=== PATIENT | male | born 1950 | race Caucasian/White ===

== ENCOUNTER 2019-09-29 11:09 | Emergency (ER) | payer MEDICARE, SELFPAY ==
[2019-09-29 11:12] VITALS: BP 215/98; PULSE 74; RESP 14; TEMP 36.8; O2SAT 98; BMI 23.8
--- NOTE | 2019-09-29 11:21 | DI.CT.S_ITS ---
PROCEDURE: CT HEAD/BRAIN WO CON INDICATIONS: fell and hit head on the rock, passed out TECHNIQUE: Noncontrast 4.5 mm thick angled axial sections acquired from the foramen magnum to the vertex, with coronal and sagittal reformats. For radiation dose reduction, the following was used: automated exposure control, adjustment of mA and/or kV according to patient size. COMPARISON: None. FINDINGS: Image quality: The CSF spaces: Basal cisterns are patent. No extra-axial fluid collections. Ventricles are normal in size and shape. Incidental note is made of an arachnoid cyst within the posterior fossa. Brain: No midline shift. No intracranial masses or hemorrhage. Nicholas-white matter interface is normal. Skull and face: Calvarium and visualized facial bones are intact, without suspicious lesions. Soft tissue swelling of the scalp overlying the left parietal region is identified without an underlying fracture. Sinuses: Visualized sinuses and mastoids are clear. IMPRESSION: Negative head CT. No acute intracranial hemorrhage. Dictated by: Ramon Hooks M.D. on 09/29/2019 at 10:45 Approved by: Ramon Hooks M.D. on 09/29/2019 at 10:46
--- NOTE | 2019-09-29 11:24 | ED.HEATRA ---
HPI - Head Injury <MATT Jolley - Last Filed: 09/29/19 13:51> General Chief complaint: Head Injury Stated complaint: Fell while walking, lost consciousness Time Seen by Provider: 09/29/19 11:11 Source: patient Mode of arrival: Ambulatory Limitations: no limitations History of Present Illness HPI Narrative: This is a 69-year-old male, nonsmoker, who presents to ED with chief complain of lower mid cervical tenderness and head injury after [facility] He thinks had hit his head on a nearby rock and possibly had a loss of consciousness. Patient denies tingling/numbness/weakness on upper extremities. Patient reports is stable on his legs and drove himself here. Patient denies taking anticoagulants or antiplatelets. MD Complaint: fall Related Data Previous Rx's Medication Instructions Recorded tadalafil [Cialis] 10 mg PO 1/2 HR PRIOR #10 tab 04/17/16 Allergies Allergy/AdvReac Type Severity Reaction Status Date / Time No Known Drug Allergies Allergy Verified 09/29/19 11:15 Review of Systems <MATT Jolley - Last Filed: 09/29/19 13:51> Review of Systems Narrative: General: Denies fever, chills, fatigue, malaise, sweats. HEENT: See HPI Respiratory: Denies dyspnea, cough, wheezing, hemoptysis, sputum. Cardiovascular: Denies chest pain, palpitations, orthopnea, edema. Gastrointestinal: Denies nausea, vomiting, abdominal pain, diarrhea, constipation, melena. : Denies dysuria, frequency, incontinence, hematuria, urinary retention. Musculoskeletal: Denies weakness, joint pain or bony pain. Skin: Denies rash, skin lesions, or other. Neurologic: Denies weakness, headache, numbness, change in speech, confusion, seizures, incoordination. Psychiatric: No concerning psychosocial issues. 12-point review of systems is negative except for those stated above. Patient History <MATT Jolley - Last Filed: 09/29/19 13:51> Medical History (Updated 09/29/19 @ 12:35 by MATT Jolley) No significant past medical history (Acute) Surgical History (Updated 09/29/19 @ 11:31 by MATT Jolley) No pertinent past surgical history (Acute) Family History (Updated 03/25/16 @ 00:00 by Conversion Provider) Father Alcoholic Manic depression Mother Essential hypertension Hyperlipidemia Chronic obstructive pulmonary disease, unspecified COPD type Sister Depression Social History Smoking Status: Never smoker Smoking Status: Never smoker alcohol intake frequency: holidays/special occasions only Substance Use Type: does not use Exam <MATT Jolley - Last Filed: 09/29/19 13:51> Narrative Exam Narrative: GEN: Alert, oriented x 3, well nourished, and in no acute distress. Head: Left parietal lobe with abrasion and dried blood and matted hair. Scalp tenderness to palpate. EYES: Pupils are equal, round, and reactive to light and accommodation. Extraocular muscles are intact bilaterally. There is no subconjunctival hemorrhage, exudate and sclera non-icteric. ENT: Bilateral auditory canals and tympanic membranes clear. Hearing grossly intact. Nose without bleeding, purulent discharge or deviation. Facial sinuses nontender to palpate. Mucous membrane moist, no mucosal lesion. Throat without erythema, tonsillar hypertrophy or exudate. Uvula in midline, airway patent. Neck: Trachea in midline. No JVD, non-tender without lymphadenopathy. No masses or thyroid megaly. Supple, non-tender and no meningeal signs. CARDIAC: Normal regular rate and rhythm without murmurs, gallops, or rubs. No chest wall tenderness. No peripheral edema, cyanosis or pallor. Capillary refill is less than 2 seconds. RESPIRATORY: Lungs are clear to auscultate bilaterally. No cough, wheezes, rales, or rhonchi. No stridor, respiratory distress, increase work of breathing, or accessary muscle used. ABD: Abdomen soft, nontender and non-distended. No guarding or rebound tenderness to palpate. Bowel sounds are normal in all 4 quadrants. There is no palpable masses or organomegaly. EXT: Full painless ROM of all extremities with no loss of sensation, strength, effusion or edema. SKIN: Abrasion on left parital lobe without active bleeding. Warm, dry, normal color for patient. BACK: Nontender without deformity or crepitance. No flank tenderness. NEUROLOGICAL: Alert and oriented to place, time and person. Sensation and motor function intact bilaterally. No facial droops, dysphasia. PSYCHIATRIC: Good judgement and reason, without hallucinations, abnormal affect or abnormal behaviors during the examination. Initial Vital Signs Initial Vital Signs: Vital Signs Temperature 98.3 F 09/29/19 11:12 Pulse Rate 74 09/29/19 11:12 Respiratory Rate 14 09/29/19 11:12 Blood Pressure 215/98 H 09/29/19 11:12 Pulse Oximetry 98 09/29/19 11:12 <Silverio Joel DO - Last Filed: 09/29/19 14:15> Initial Vital Signs Initial Vital Signs: Vital Signs Temperature 98.3 F 09/29/19 11:12 Pulse Rate 74 09/29/19 11:12 Respiratory Rate 14 09/29/19 11:12 Blood Pressure 215/98 H 09/29/19 11:12 Pulse Oximetry 98 09/29/19 11:12 Scores <Jeronimo ConroyMATT Simpson - Last Filed: 09/29/19 13:51> GCS [place] coma scale eye opening: Spontaneous [place] coma scale verbal response: Orientated [place] coma scale motor response: Obey commands [place] coma scale total score: 15 Nexus Score for C-Spine Focal Neurologic deficit present: No Midline spinal tenderness present: Yes Altered level of conciousness present: No Intoxication present: No Distracting Injury Present: Yes Nexus Criteria for C-spine: 2 Course <Jeronimo VilchisMATT Simpson - Last Filed: 09/29/19 13:51> Course Course Narrative: Rigid C collar applied upon arrival due to low midcervical pain Orders Ordered: ED Orders 09/29/19 11:21 CT head/brain wo con Stat 09/29/19 11:31 CT cervical spine wo con Stat Discontinued Medications Acetaminophen (Tylenol) 650 mg PO NOW ONE Stop: 09/29/19 12:00 Last Admin: 09/29/19 12:06 Dose: 650 mg Documented by: TIERA Bacitracin (Bacitracin) 1 applic TOP NOW ONE Stop: 09/29/19 11:23 Last Admin: 09/29/19 12:06 Dose: 1 applic Documented by: TIERA Diphtheria/Tetanus/Acell Pertussis (Adacel) 0.5 ml IM .ONCE ONE Stop: 09/29/19 12:00 Last Admin: 09/29/19 12:06 Dose: 0.5 ml Documented by: TIERA Vital Signs Vital signs: Vital Signs - 8 hr 09/29/19 11:12 09/29/19 12:00 09/29/19 12:41 Temperature 98.3 F 96.3 F L Pulse Rate 74 72 63 Respiratory Rate 14 16 16 Blood Pressure 215/98 H Blood Pressure [Left Arm] 170/82 H 192/87 H Pulse Oximetry 98 98 <Silverio Joel DO - Last Filed: 09/29/19 14:15> Orders Ordered: ED Orders 09/29/19 11:21 CT head/brain wo con Stat 09/29/19 11:31 CT cervical spine wo con Stat Discontinued Medications Acetaminophen (Tylenol) 650 mg PO NOW ONE Stop: 09/29/19 12:00 Last Admin: 09/29/19 12:06 Dose: 650 mg Documented by: TIERA Bacitracin (Bacitracin) 1 applic TOP NOW ONE Stop: 09/29/19 11:23 Last Admin: 09/29/19 12:06 Dose: 1 applic Documented by: TIERA Diphtheria/Tetanus/Acell Pertussis (Adacel) 0.5 ml IM .ONCE ONE Stop: 09/29/19 12:00 Last Admin: 09/29/19 12:06 Dose: 0.5 ml Documented by: TIERA Vital Signs Vital signs: Vital Signs - 8 hr 09/29/19 11:12 09/29/19 12:00 09/29/19 12:41 Temperature 98.3 F 96.3 F L Pulse Rate 74 72 63 Respiratory Rate 14 16 16 Blood Pressure 215/98 H Blood Pressure [Left Arm] 170/82 H 192/87 H Pulse Oximetry 98 98 MDM - Head Injury <MATT Jolley - Last Filed: 09/29/19 13:51> Differential Diagnosis Differential diagnosis: Likely closed head injury, subdural hematoma, concussion with loss of consciousness and other (neck strain, c spine injury) Medical Records Attestation: I reviewed the patient's medical records. Imaging Data CT- Neck: Radiologist's Impression: [address] [address] [address] Scan Report Signed Patient: Robby Keith CMR#: [id number] : 1950Acct:[id number] Age/Sex: 69 / MDate of Service: 09/29/19 Loc: ED Accession Number: [id number] Procedure: CT cervical spine wo con Ordering Provider: Jeronimo TeranP PROCEDURE: CT CERVICAL SPINE WO CON INDICATIONS: fell and hit head on the rock, passed out, lower c spine px TECHNIQUE: Noncontrast 3 mm thick sections acquired from the skull base to the T4 level. Sagittal and coronal reformats were then constructed. For radiation dose reduction, the following was used: automated exposure control, adjustment of mA and/or kV according to patient size. COMPARISON: None. FINDINGS: Image quality: Diagnostic. Bones: The craniocervical and atlantoaxial joints are well-maintained. The odontoid is intact. The vertebral body heights and prevertebral soft tissues are within normal limits throughout the cervical spine without evidence to suggest acute compression fracture. No other fractures are evident within the cervical spine. The bone mineralization is within normal limits. Moderate multilevel degenerative changes of the cervical spine are identified demonstrating areas of disc height loss, endplate irregularity, disc osteophyte complexes, and facet arthrosis. These findings are most pronounced at the level of C6-7. Soft tissues: No prevertebral soft tissue swelling. The imaged lung apices are clear. Imaged portions of the mediastinum are unremarkable. Otherwise, the remainder of the imaged soft tissues of the neck are within normal limits. IMPRESSION: 1. No displaced cervical fractures. 2. Moderate degenerative changes of the cervical spine. Dictated by: Ramon Hooks M.D. on 09/29/2019 at 10:46 Approved by: Ramon Hooks M.D. on 09/29/2019 at 10:48 ECG Data Interpretation: [place] [address] CT Scan Report Signed Patient: Robby Keith CMR#: [id number] : 1950Acct:[id number] Age/Sex: 69 / MDate of Service: 09/29/19 Loc: ED Accession Number: [id number] Procedure: CT head/brain wo con Ordering Provider: Jeronimo Teran PROCEDURE: CT HEAD/BRAIN WO CON INDICATIONS: fell and hit head on the rock, passed out TECHNIQUE: Noncontrast 4.5 mm thick angled axial sections acquired from the foramen magnum to the vertex, with coronal and sagittal reformats. For radiation dose reduction, the following was used: automated exposure control, adjustment of mA and/or kV according to patient size. COMPARISON: None. FINDINGS: Image quality: The CSF spaces: Basal cisterns are patent. No extra-axial fluid collections. Ventricles are normal in size and shape. Incidental note is made of an arachnoid cyst within the posterior fossa. Brain: No midline shift. No intracranial masses or hemorrhage. Nicholas-white matter interface is normal. Skull and face: Calvarium and visualized facial bones are intact, without suspicious lesions. Soft tissue swelling of the scalp overlying the left parietal region is identified without an underlying fracture. Sinuses: Visualized sinuses and mastoids are clear. IMPRESSION: Negative head CT. No acute intracranial hemorrhage. Dictated by: Ramon Hooks M.D. on 09/29/2019 at 10:45 Approved by: Ramon Hooks M.D. on 09/29/2019 at 10:46 [facility] Narrative Medical decision making narrative: This is a 69 year male who presents to ED with after he slipped on a allergy and fall and hit his head on a rock while he was hiking this morning. Last tetanus was about 11-[address] of head and C-spine obtained due to patient passed out, bleeding from left-sided scalp and low mid cervical tenderness to palpate. CT of head and C-spine was negative for acute findings. Patient was medicated with Tylenol for headache and Tdap was updated today. C-collar was removed after the negative CT test. Return precautions were discussed with the patient and patient verbalized understanding and in agreement with the treatment plan. Patient had hypertension in ED. patient reports he monitors his blood pressure few times a week and usually is not as high as today. Reports BP range at home is under 150s over 90s. Patient had hikes at least 3 times a day with 20 lb backpack and lives very active life. Patient advised to follow up with his primary care physician if his blood pressure reads above 150s over 80s consistently and patient verbalized understanding and in agreement with the treatment plan. Discharge Plan Departure Patient Disposition: Home Clinical Impression: Concussion with loss of consciousness Qualifiers: Encounter type: initial encounter Qualified Code(s): S06.0X9A - Concussion with loss of consciousness of unspecified duration, initial encounter Neck strain Qualifiers: Encounter type: initial encounter Qualified Code(s): S16.1XXA - Strain of muscle, fascia and tendon at neck level, initial encounter Hypertension Qualifiers: Hypertension type: unspecified Qualified Code(s): I10 - Essential (primary) hypertension Discharge Date/Time: 09/29/19 13:03 Instructions: DI for High Blood Pressure, DI for Closed Head Injury, DI for Neck Pain Activity Restrictions/Additional Instructions: You have been diagnosed with [closed head injury/concussion with loss of consciousness, neck strain, high blood pressure. CT scan of head and C-spine without acute findings today. Tdap has been updated. You were medicated with Tylenol while in ED for discomfort. You had elevated blood pressure while in ED and please follow up with her primary care physician.]. What to do: *Take your medications as directed. Please keep wound in her scalp clean and dry. After shower, you can apply antibiotic ointment on affected site. You can use cool pack next 24-48 hours for discomfort. You can use Tylenol and or Motrin as needed for discomfort. Tylenol up to 9415-6936 mg in 24 hours. Ibuprofen 400 mg to 600 mg up to 3 times a day with food. *Follow up with your primary care provider in 2-3 days, call for an appointment. Let them know you were seen in the ED and that we asked you to be seen in follow up. *Return to ED if you have any new, worsening, or concerning symptoms, such as [chest pain, breathing difficulty, unable to tolerate fluids, unusual behavior, seizure-like activities, worsening headache, vision change, weakness, tingling to extremities or any acute concerns]. Prescriptions: No Action tadalafil [Cialis] 10 MG tablet 10 mg PO 1/2 HR PRIOR Qty: 10 RF: 4 Referrals: Melissa Morgan DO [Primary Care Provider] - <Silverio Joel DO - Last Filed: 09/29/19 14:15> Cosign ED Attending Cosignature Attestation: Dr Joel Co-Sign Statement: I was available for consultation during this patient's emergency department visit. This chart is signed by myself for administrative purposes only. I did not have direct contact with this patient during this visit. They were seen independently by the APC.
--- NOTE | 2019-09-29 11:31 | DI.CT.S_ITS ---
PROCEDURE: CT CERVICAL SPINE WO CON INDICATIONS: fell and hit head on the rock, passed out, lower c spine px TECHNIQUE: Noncontrast 3 mm thick sections acquired from the skull base to the T4 level. Sagittal and coronal reformats were then constructed. For radiation dose reduction, the following was used: automated exposure control, adjustment of mA and/or kV according to patient size. COMPARISON: None. FINDINGS: Image quality: Diagnostic. Bones: The craniocervical and atlantoaxial joints are well-maintained. The odontoid is intact. The vertebral body heights and prevertebral soft tissues are within normal limits throughout the cervical spine without evidence to suggest acute compression fracture. No other fractures are evident within the cervical spine. The bone mineralization is within normal limits. Moderate multilevel degenerative changes of the cervical spine are identified demonstrating areas of disc height loss, endplate irregularity, disc osteophyte complexes, and facet arthrosis. These findings are most pronounced at the level of C6-7. Soft tissues: No prevertebral soft tissue swelling. The imaged lung apices are clear. Imaged portions of the mediastinum are unremarkable. Otherwise, the remainder of the imaged soft tissues of the neck are within normal limits. IMPRESSION: 1. No displaced cervical fractures. 2. Moderate degenerative changes of the cervical spine. Dictated by: Ramon Hooks M.D. on 09/29/2019 at 10:46 Approved by: Ramon Hooks M.D. on 09/29/2019 at 10:48
[2019-09-29 12:00] VITALS: BP 170/82; PULSE 72; RESP 16; O2SAT 98
[2019-09-29] MEDS: TET,DIPH,PERTUSS(ACELL),VAC/PF 0.5 ML SYRINGE IM (12:06)
[2019-09-29] MEDS: ACETAMINOPHEN 325 MG TABLET 650 MG PO (12:06)
[2019-09-29] MEDS: BACITRACIN OINT 0.9 GM PCKT 1 APPLIC TOP (12:06)
--- NOTE | 2019-09-29 12:39 | PC.NURSE ---
Patient resting in bed with eyes closed . No needs voiced at this time. Awaiting disposition. Bp 192/87.
[2019-09-29 12:41] VITALS: BP 192/87; PULSE 63; RESP 16; TEMP 35.7
== END 2019-09-29 13:03 | disposition home or self-care (01) ==
PROVIDERS: Emergency Provider Nurse Practitioner Family; Family Provider Family Medicine; PCP Family Medicine
DX: S06.0X9A Concussion with loss of consciousness of unspecified duration, initial encounter (principal); S16.1XXA Strain of muscle, fascia and tendon at neck level, initial encounter; I10 Essential (primary) hypertension; W01.10XA Fall on same level from slipping, tripping and stumbling with subsequent striking against unspecified object, initial encounter; Z23 Encounter for immunization
CPT/HCPCS: 70450; 72125; 90471; 99284; 90715

== ENCOUNTER 2023-12-28 18:56 | Emergency (ER) | payer MEDICARE, SELFPAY ==
[2023-12-28] VITALS (7 sets, daily range): BP systolic 179–236; BP diastolic 84–102; PULSE 58–68; RESP 16; TEMP 36.3; O2SAT 97–99; BMI 25.2
[2023-12-28 19:38] LABS: Urine Volume 10mL (spun)
[2023-12-28 19:43] LABS: Amorphous Sediment Urine 3+; Bacteria Urine Moderate (10-30); RBC Urine >100/HPF (0-5/HPF); Squamous Epithelial Cell Urine 0-1 /HPF (0-5/HPF); WBC Urine 1-5/HPF (0-5/HPF)
[2023-12-28 19:44] LABS: Culture Indicated Urine Specimen Cultured
--- NOTE | 2023-12-28 23:04 | ED_ITS ---
HPI - Back Pain/Injury General Chief Complaint: Back Pain/Injury Stated Complaint: severe back pain t-7 Time Seen by Provider: 12/28/23 22:56 Source: patient History of Present Illness HPI Narrative: 73-year-old male with no reported past medical history (doesn't see a PCP) presents by private vehicle from home for approximately 1 week of left lower back pain. Pain is intermittent, does not radiate, comes and goes seemingly without provocation. Patient has tried repositioning and stretching exercises at home without significant relief. Patient states he does not take any chronic medications and ?has no intention of ever doing so?. He does not follow with a primary care doctor and has not for many years. Related Data Previous Rx's Medication Instructions Recorded tadalafil 10 mg tablet (Cialis) 10 mg PO 1/2 HR PRIOR #10 tabs 04/17/16 ciprofloxacin HCl 500 mg tablet 500 mg PO Q12H #28 tabs 12/29/23 fluconazole 200 mg tablet 200 mg PO DAILY #14 tabs 12/29/23 hydrocodone 5 mg-acetaminophen 325 1 tab PO Q8H PRN pain #14 tabs 12/29/23 mg tablet tamsulosin 0.4 mg capsule 0.4 mg PO DAILY #30 caps 12/29/23 Allergies Allergy/AdvReac Type Severity Reaction Status Date / Time No Known Drug Allergies Allergy Verified 09/29/19 11:15 Patient History Medical History No significant past medical history Surgical History No pertinent past surgical history Family History Father Alcoholic Manic depression Mother Essential hypertension Hyperlipidemia Chronic obstructive pulmonary disease, unspecified COPD type Sister Depression Social History Smoking Status: Former smoker Smoking Status: Former smoker alcohol intake frequency: a few times a week Substance Use Type: does not use Exam Initial Vital Signs Initial Vital Signs: Vital Signs Temperature 97.4 F L 12/28/23 19:14 Pulse Rate 60 12/28/23 19:14 Respiratory Rate 16 12/28/23 19:14 Blood Pressure 179/84 H 12/28/23 19:14 Pulse Oximetry 98 12/28/23 19:14 Oxygen Delivery Method Room Air 12/28/23 19:14 Const: Awake, alert, no acute distress, nontoxic appearing Cardiac: regular rate, regular rhythm RESP: unlabored, clear bilaterally, no wheezing GI: Soft, nontender, nondistended, no rebound, no guarding MSK back: No midline tenderness, no CVA tenderness bilaterally, left paraspinal lumbar tenderness to deep palpation Skin: Warm, Dry, intact, no rashes Neuro: AO x3, CN II-XII grossly intact, moves all extremities Course Orders Ordered: ED Orders 12/28/23 19:25 Urine Culture Stat Urine Microscopic Stat 12/28/23 23:04 CT kidney ureter bladder (KUB) Stat 12/28/23 23:55 CBC Auto Diff [Complete Blood Count AUTO DIFF] Stat CMP [Comprehensive Metabolic Panel] Stat 12/29/23 01:12 EKG-12 Lead Stat Discontinued Medications Ciprofloxacin (Ciprofloxacin 250 Mg Tablet) 500 mg PO NOW ONE Stop: 12/29/23 01:00 Last Admin: 12/29/23 01:09 Dose: 500 mg Documented By: AD Fluconazole (Fluconazole 100 Mg Tablet) 150 mg PO NOW ONE Stop: 12/29/23 01:00 Last Admin: 12/29/23 01:09 Dose: 150 mg Documented By: AD Sodium Chloride (Normal Saline 0.9%) 1,000 mls @ 1,000 mls/hr IV BOLUS ONE Stop: 12/29/23 01:33 Last Infusion: 12/29/23 01:25 Dose: Infused Documented By: Admin: 12/29/23 00:41 Dose: 1,000 mls/hr Documented By: Vital Signs Vital signs: Vital Signs - 8 hr 12/28/23 22:46 12/28/23 22:48 12/28/23 22:48 Pulse Rate 68 62 Blood Pressure 224/97 H Pulse Oximetry 99 98 12/28/23 23:00 12/28/23 23:00 12/28/23 23:18 Pulse Rate 64 58 L Blood Pressure 210/94 H Pulse Oximetry 98 98 12/28/23 23:18 12/28/23 23:30 12/28/23 23:31 Pulse Rate 60 59 L Blood Pressure 236/100 H Pulse Oximetry 98 97 12/28/23 23:31 12/29/23 00:00 12/29/23 00:01 Pulse Rate 64 Blood Pressure 231/102 H 197/93 H Pulse Oximetry 97 12/29/23 00:01 12/29/23 00:30 12/29/23 00:31 Pulse Rate 64 56 L Blood Pressure 166/80 H Pulse Oximetry 98 96 12/29/23 00:31 12/29/23 01:00 12/29/23 01:01 Pulse Rate 58 L 60 56 L Blood Pressure Pulse Oximetry 95 99 99 12/29/23 01:01 12/29/23 01:19 12/29/23 01:19 Pulse Rate 67 Blood Pressure 207/95 H 185/98 H Pulse Oximetry 98 MDM - Back Pain/Injury Differential Diagnosis Differential diagnosis: Likely lumbar radiculopathy, sciatica and renal colic Lab Data 12/28/23 23:55 12/28/23 23:55 Labs: Lab Results 12/28/23 12/28/23 Range/Units 19:25 23:55 WBC 8.4 (4.5-11.0) X10^3/uL RBC 4.63 (4.5-5.9) X10^6/uL Hgb 14.0 (13.5-17.5) g/dL Hct 40.9 L (41-53) % MCV 88.5 (80-100) fL MCH 30.3 (26-34) PG MCHC 34.3 (30-36) % RDW 12.9 (11.6-14.8) % Plt Count 162 (150-400) X10^3/uL Neut % (Auto) 72.8 (50-75) % Lymph % (Auto) 14.0 L (25-40) % [place] % (Auto) 12.2 (3-14) % Eos % (Auto) 0.7 L (2-4) % Baso % (Auto) 0.3 (0-2) % Neut # (Auto) 6200 (8864-3359) /uL Lymph # (Auto) 1200 (0404-6359) /uL [place] # (Auto) 1000 H (0-900) /uL Eos # (Auto) 100 (0-450) /uL Baso # (Auto) 0 (0-100) /uL Sodium 138 (137-145) mmol/L Potassium 4.7 (3.4-5.1) mmol/L Chloride 106 (98-107) mmol/L Carbon Dioxide 27 (22-32) mmol/L BUN 26 H (9-20) mg/dL Creatinine 1.86 H (0.66-1.25) mg/dL Estimated GFR 38 L (>60) mL/min BUN/Creatinine Ratio 14.0 (6-22) Glucose 121 H (80-110) mg/dL Calcium 9.2 (8.4-10.2) mg/dL Total Bilirubin 0.8 (0.2-1.3) mg/dL AST 24 (17-59) IU/L ALT 16 (<50) IU/L Alkaline Phosphatase 96 (38-126) U/L Total Protein 7.5 (6.3-8.2) g/dL Albumin 4.4 (3.5-5.0) g/dL Globulin 3.1 (1.7-4.1) g/dL Albumin/Globulin Ratio 1.4 (1.0-2.8) Urine RBC >100/hpf H (0-5/HPF) Urine WBC 1-5/hpf (0-5/HPF) Ur Squamous Epith Cells 0-1 /hpf (0-5/HPF) Amorphous Sediment 3+ Urine Bacteria Moderate (10-30) H (None) Urine Yeast 30-100/hpf H (None) Ur Culture Indicated? Specimen cultured Vol Urine Centrifuged 10ml (spun) Imaging Data CT scan - abdomen/pelvis: Radiologist's Impression: PROCEDURE: CT KIDNEY URETER BLADDER (KUB) INDICATIONS: L FLANK PAIN TECHNIQUE: Axial sections were acquired from the lung bases to the pubic symphysis. Coronal and sagittal reformats were performed. For radiation dose reduction, the following was used: automated exposure control, adjustment of mA and/or kV according to patient size. COMPARISON: None. FINDINGS: Image quality: Diagnostic. Lower Chest: No significant findings. URINARY: Right Kidney: No stones or hydronephrosis. Right Ureter: No hydroureter. Left Kidney: Moderate left-sided hydronephrosis and perinephric fat stranding is seen. Left Ureter: Moderate left hydroureter and periureteral fat stranding extending to the level of distal ureter. 5 mm stone is noted in distal left ureter and measures 789 Hounsfield unit in density series 2, image 68. Bladder: Normal wall thickness. No stones. ABDOMEN: Liver: No contour-deforming solid mass. Gallbladder: No radiopaque gallstones or wall thickening. Biliary ducts: No biliary dilation. Pancreas: No ductal dilation. Spleen: Size is within normal limits. Adrenal Glands: No adrenal nodules. Stomach and Bowel: There is no bowel obstruction or abnormal bowel wall thickening. No mesenteric fat stranding. Sigmoid diverticulosis is seen without CT evidence of acute diverticulitis. No abscess collection. Peritoneum: No abnormal intraperitoneal fluid. No free air. Ventral Wall: No hernia. Abdominal Nodes: No enlarged retroperitoneal or mesenteric lymph nodes. Vessels: Aorta and inferior vena cava are normal in size. PELVIS: Pelvic Organs: Enlarged prostate gland with mass effect on floor of urinary bladder is noted.. Pelvic Nodes: Unremarkable. Miscellaneous: No inguinal hernias are seen. Bones: No aggressive appearing bony lesions. No acute vertebral body compression fracture. IMPRESSION: 1. 5 mm left distal ureteral stone just proximal to left UVJ and measures 789 Hounsfield unit in density. Moderate left-sided hydronephrosis and hydroureter. Extensive left periureteral and perinephric fat stranding. 2. No right-sided renal stones or hydronephrosis. Normal appearing urinary bladder. Enlarged prostate gland with mass effect on floor of urinary bladder. 3. No bowel obstruction or abnormal bowel wall thickening. Sigmoid diverticulosis without CT evidence of acute diverticulitis. Dictated by: Blas Jackson M.D. on 12/28/2023 at 23:29 Approved by: Blas Jackson M.D. on 12/28/2023 at 23:32 ECG Data Interpretation: Normal sinus rhythm. QTc 416 MDM Narrative Medical decision making narrative: Nontoxic appearing patient with 1 week of symptoms. Physical exam is fairly unremarkable, but he does have reproducible tenderness in the left lower lumbar paraspinal regions. Laboratory work and CT imaging ordered. Patient initially hypertensive after ambulating from waiting room to ED bed, however this improved without any interventions. Laboratory work shows WBC count 8.4, hemoglobin 14.0, platelet count 162, sodium 138, potassium 4.7, creatinine 1.86, normal liver enzymes. There are no recent priors for comparison, only laboratory work on while in her system is from 2016. CT of the abdomen and pelvis shows left-sided 5 mm stone with [id number] hydronephrosis. Urinalysis significant for greater than 100 RBCs per high-power field, moderate bacteria. No WBCs seen. 30-100 yeast seen per high-powered field. Patient given dose of antibiotics and antifungal in emergency department as well as 1 L IVF. Patient counseled on his laboratory work and imaging findings. Patient was strongly advised to call Urology for follow up. Started on pain medications, antibiotics, and antifungal medications. Patient's QTC 416, per literature review QT prolongation with these medications is negligible and should not cause events. Counseled to avoid nephrotoxic medications. ED return precautions discussed. Discharge Plan Departure Patient Disposition: Home Clinical Impression: Renal colic, Acute UTI, Yeast cystitis Instructions: Kidney Stones -- Adult, DI for Urinary Tract Infection (UTI) Activity Restrictions/Additional Instructions: There were several abnormalities found today on your workup. You have a 5 mm stone on the left-hand side causing some fluid buildup in the kidney itself. You have a slight elevation in your creatinine, which measures kidney function. You also had bacteria and yeast in your urine. It was extremely important that you closely follow up with Urology for monitoring of this stone. Avoid medications that may harm your kidney such as aspirin, ibuprofen, Aleve, or other anti-inflammatories. Make sure to drink lots of fluid and call 1st thing tomorrow morning to make a follow up appointment with Urology. You are being sent home on several medications. The ciprofloxacin as an antibiotic that will help the urinary tract infection. Fluconazole is a medication for yeast. Tamsulosin helps stone passage, and the hydrocodone is for pain. Hydrocodone is a narcotic medication that may cause constipation and drowsiness. Do not take this medication with alcohol or before operating heavy machinery such as a car. If you notice worsening pain, fevers, or are unable to keep her medications down due to vomiting please return to the emergency department for repeat evaluation. Prescriptions: New ciprofloxacin HCl 500 mg tablet 500 mg PO Q12H Qty: 28 0RF tamsulosin 0.4 mg capsule 0.4 mg PO DAILY Qty: 30 0RF fluconazole 200 mg tablet 200 mg PO DAILY Qty: 14 0RF hydrocodone-acetaminophen 5-325 mg tablet 1 tab PO Q8H PRN (Reason: pain) Qty: 14 0RF No Action tadalafil [Cialis] 10 MG tablet 10 mg PO 1/2 HR PRIOR Qty: 10 4RF Referrals: Jeovanny Lipscomb MD [Physician] - Melissa Morgan DO [Primary Care Provider] - Stand Alone Forms: Patient Portal/API
[2023-12-29] VITALS (7 sets, daily range): BP systolic 166–207; BP diastolic 80–98; PULSE 56–67; O2SAT 95–99
[2023-12-29 00:23] LABS: Add Manual Diff / Slide Review NO; Basophils Absolute Auto 0 /uL (0-100); Basophils Percent Auto 0.3 % (0-2); Eosinophils Absolute Auto 100 /uL (0-450); Eosinophils Percent Auto 0.7 % (2-4); Hematocrit 40.9 % (41-53); Lymphocytes Absolute Auto 1200 /uL (1100-4500); Mean Corpuscular HGB Conc 34.3 % (30-36); Mean Corpuscular Hemoglobin 30.3 PG (26-34); Mean Corpuscular Volume 88.5 fL (80-100); Monocytes Absolute Auto 1000 /uL (0-900); Monocytes Percent Auto 12.2 % (3-14); Neutrophils Absolute Auto 6200 /uL (1500-7000); Neutrophils Percent Auto 72.8 % (50-75); Platelet Count 162 X10^3/uL (150-400); Red Blood Cell Count 4.63 X10^6/uL (4.5-5.9); Red Cell Distribution Width 12.9 % (11.6-14.8); White Blood Cell Count 8.4 X10^3/uL (4.5-11.0)
[2023-12-29 00:24] LABS: Alanine Aminotransferase 16 IU/L (<50); Albumin 4.4 g/dL (3.5-5.0); Albumin Globulin Ratio 1.4 (1.0-2.8); Alkaline Phosphatase 96 U/L (38-126); Aspartate Aminotransferase 24 IU/L (17-59); Bilirubin Total 0.8 mg/dL (0.2-1.3); Blood Urea Nitrogen 26 mg/dL (9-20); Calcium 9.2 mg/dL (8.4-10.2); Carbon Dioxide 27 mmol/L (22-32); Chloride 106 mmol/L (98-107); Estimated Glomerular Filt Rate 38 mL/min (>60); Globulin 3.1 g/dL (1.7-4.1); Glucose 121 mg/dL (80-110); HEMOLYSIS < 15 (0-50); Potassium 4.7 mmol/L (3.4-5.1); Sodium 138 mmol/L (137-145); Total Protein 7.5 g/dL (6.3-8.2)
[2023-12-29] MEDS: SODIUM CHLORIDE 0.9% 1,000 ML 1000 ML IV (00:41)
[2023-12-29] MEDS: FLUCONAZOLE 100 MG TABLET 150 MG PO (01:09)
[2023-12-29] MEDS: CIPROFLOXACIN 250 MG TABLET 500 MG PO (01:09)
--- NOTE | 2023-12-29 01:12 | EKG_ITS ---
[facility] [address] [place] [address] Test Date: 2023-12-29 Pat Name: Robby Keith Department: [facility] Room: Gender: Male Elderly Sitter: JANNETH : 1950 Requested By: Order Number: [id number] Reading MD: Salvador Marquis Measurements Intervals [place] Rate: 62 P: 78 OR: 236 QRS: 12 QRSD: 90 T: 20 QT: 406 QTc: 412 Interpretive Statements Sinus rhythm with 1st degree AV block Electronically Signed On 12-29-2023 16:37:18 PDT by Salvador Marquis
== END 2023-12-29 01:35 | disposition home or self-care (01) ==
PROVIDERS: Emergency Provider Emergency Medicine; Family Provider Family Medicine; PCP Family Medicine
DX: B37.41 Candidal cystitis and urethritis (principal); N23 Unspecified renal colic
CPT/HCPCS: 36415; 74176; 80053; 81015; 85025; 87086; 93005; 96360; 99284

== ENCOUNTER → 2024-04-07 10:05 | Outpatient (CLI) | payer MEDICARE, SELFPAY ==
[2024-04-07 11:56] LABS: Calcium 9.4 mg/dL (8.4-10.2); Phosphorous 3.1 mg/dL (2.3-3.7); Uric Acid 6.8 mg/dL (3.5-8.5)
[2024-04-08 04:34] LABS: Prostate Specific Antigen 2.16 ng/mL (0.10-4.00)
[2024-04-08 12:36] LABS: Calcium 9.4 mg/dL (8.6-10.2); Parathyroid Hormone, Intact 39 pg/mL (15-65)
== END ==
PROVIDERS: Family Provider Family Medicine; Referring Provider Urology; Visit Provider Urology
DX: R97.20 Elevated prostate specific antigen [PSA] (principal); N20.0 Calculus of kidney
CPT/HCPCS: 36415; 82310; 83970; 84100; 84153; 84550